=== PATIENT | male | born 1985 | race Caucasian/White ===

== ENCOUNTER 2022-08-09 10:53 | Emergency (ER) | payer MEDICARE, MEDICAID, SELFPAY ==
--- NOTE | ~2022-08-09 | CT_ITS ---
CT of the Abdomen and Pelvis: Indication: Abdominal pain Technique: 2.5 mm axial scans were obtained through the abdomen and pelvis following intravenous adm inistration of 100 cc of Omnipaque 350. Dose reduction technique was used on this scan by utilizing a utomated exposure control and iterative reconstruction technique. The dose-length product (DLP) was 1 86.74 mGy-cm. Findings: Scans through the lung bases are unremarkable. The liver, spleen, pancreas, gallbladder, adrenals and kidneys are within normal limits. No evidence of aortic aneurysm. No lymphadenopathy. No bowel obstruction or bowel wall thickening. Large amount of stool present at the rectum. There is prominent air distention of the transverse colon. Images through the pelvis were performed. Urinary bladder unremarkable. Prostate gland and seminal ve sicles are unremarkable. No ascites. There is scoliosis with extensive spinal fixation hardware prese nt. Impression: Large amount of stool at the rectum suggests fecal impaction. No other significant findings. Reviewed, dictated and finalized at [facility]. Impression: Large amount of stool at the rectum suggests fecal impaction. No other significant findings.
[2022-08-09 10:57] VITALS: BP 96/70; PULSE 72; RESP 16; TEMP 36.2; O2SAT 99
[2022-08-09 13:05] LABS: Basophils Absolute Auto 0.1 K/mm3 (0.0-0.1); Basophils Percent Auto 0.8 % (0.2-1.2); Eosinophils Absolute Auto 0.2 K/mm3 (0-0.3); Eosinophils Percent Auto 2.4 % (0-4.4); Hematocrit 43.8 % (42.0-52.0); Hemoglobin 14.3 g/dL (14.0-18.0); Immature Granulocyte Absolute 0.01 K/mm3 (0.00-0.031); Immature Granulocyte Percent A 0.1 % (0-0.5); Lymphocytes Absolute Auto 1.77 K/mm3 (0.9-3.2); Lymphocytes Percent Auto 23.4 % (18.3-44.2); Mean Corpuscular HGB Conc 32.6 g/dl (32-36); Mean Corpuscular Hemoglobin 30.6 pg (26-34); Mean Corpuscular Volume 93.6 fl (80-100); Mean Platelet Volume 10.3 fl (7.4-10.4); Monocytes Absolute Auto 0.9 K/mm3 (0.1-0.6); Monocytes Percent Auto 12.3 % (2.6-8.5); Neutrophils Absolute Auto 4.6 K/mm3 (1.3-6.7); Platelet Count Result 204 k/mm3 (150-375); Red Blood Count 4.68 M/mm3 (4.6-6.20); Red Cell Distribution Width 13.1 % (11.5-14.5); White Blood Count 7.6 K/mm3 (4.5-10.0)
[2022-08-09 13:23] LABS: Alanine Aminotransferase 134 U/L (6-50); Albumin Level 4.4 g/dL (3.5-5.1); Alkaline Phosphatase 142 U/L (38-126); Anion Gap 6 mmol/L (8-16); Aspartate Amino Transferase 109 U/L (17-59); Bilirubin,Total 0.6 mg/dL (0.2-1.3); Blood Urea Nitrogen 11 mg/dL (9-20); Calcium 8.8 mg/dL (8.4-10.2); Carbon Dioxide 31 mmol/L (22-30); Chloride 102 mmol/L (98-107); Estimated Glomerular Filt Rate > 60; Glucose 78 mg/dL (65-110); Potassium 4.4 mmol/L (3.4-5.0); Sodium 139 mmol/L (137-145)
[2022-08-09 14:32] VITALS: BP 88/61; PULSE 60; RESP 18; O2SAT 98
--- NOTE | 2022-08-09 14:51 | ED.GENADULT ---
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 Patient states that he had severe pain earlier prior to coming to the ER however by the time he came to the ER it subsided denies any nausea or vomiting. No history of fever or chills. Mom states that she called Dr. Juan have recommended to come to the ER to get a CT of the abdomen. She also states that his liver enzymes were elevated and is worried about liver failure Related Data Allergies Allergy/AdvReac Type Severity Reaction Status Date / Time No Known Allergies Allergy Verified 08/09/22 14:33 Review of Systems Review of Systems: ROS unobtainable: Yes unobtainable due to medical condition Exam Narrative: GENERAL: Well-appearing, thin and frail HEAD: Normocephalic, atraumatic. EYES: PERRLA and EOMI. NECK: Supple. CHEST: Clear to auscultation. No respiratory distress. HEART: Regular rate and rhythm. No murmur heard. Normal peripheral pulses. ABDOMEN: Soft, nontender, nondistended, normal active bowel sounds. EXTREMITIES: Normal range of motion. No edema. SKIN: Warm, dry, no rash. NEURO: No focal deficits. Alert PSYCH: Normal mood and affect. Course Course Emergency Course: Patient comfortably resting on the bed in no discomfort informed mother about his lab work, CT findings. Recommended to give MiraLAX to 3 times a day till he has a good bowel movement. Continue home medications for Vital Signs Vital signs: Vital Signs Temperature 36.2 C L 08/09/22 10:57 Pulse Rate 72 08/09/22 10:57 Respiratory Rate 16 08/09/22 10:57 Blood Pressure 96/70 L 08/09/22 10:57 Pulse Oximetry 99 08/09/22 10:57 Oxygen Delivery Room Air 08/09/22 10:57 Temperature 36.2 C L 08/09/22 10:57 Pulse Rate 60 08/09/22 14:32 Respiratory Rate 18 08/09/22 14:32 Blood Pressure 88/61 L 08/09/22 14:32 Pulse Oximetry 98 08/09/22 14:32 Oxygen Delivery Room Air 08/09/22 10:57 Medical Decision Making MDM Narrative Medical decision making narrative: With a history of Jeremy syndrome either bed or wheelchair bound having intermittent abdominal pain will obtain a CT of the abdomen and lab lab work. Differential Diagnosis Differential Diagnosis: Bowel obstruction, constipation Medical Records Medical records reviewed: Yes I reviewed the external patient's medical records. Vital Signs Vital Signs: Vital Signs Temperature 36.2 C L 08/09/22 10:57 Pulse Rate 72 08/09/22 10:57 Respiratory Rate 16 08/09/22 10:57 Blood Pressure 96/70 L 08/09/22 10:57 Pulse Oximetry 99 08/09/22 10:57 Oxygen Delivery Room Air 08/09/22 10:57 Temperature 36.2 C L 08/09/22 10:57 Pulse Rate 60 08/09/22 14:32 Respiratory Rate 18 08/09/22 14:32 Blood Pressure 88/61 L 08/09/22 14:32 Pulse Oximetry 98 08/09/22 14:32 Oxygen Delivery Room Air 08/09/22 10:57 Lab Data Lab results reviewed: Yes I reviewed the patient's lab results. 08/09/22 12:56 08/09/22 12:56 Labs: Lab Results 08/09/22 08/09/22 Range/Units 12:56 12:56 WBC 7.6 (4.5-10.0) K/mm3 RBC 4.68 (4.6-6.20) M/mm3 Hgb 14.3 (14.0-18.0) g/dL Hct 43.8 (42.0-52.0) % MCV 93.6 (80-100) fl MCH 30.6 (26-34) pg MCHC 32.6 (32-36) g/dl RDW 13.1 (11.5-14.5) % Plt Count 204 (150-375) k/mm3 MPV 10.3 (7.4-10.4) fl Immature Gran % (Auto) 0.1 (0-0.5) % Neut % (Auto) 61.0 (45.5-73.1) % Lymph % (Auto) 23.4 (18.3-44.2) % [place] % (Auto) 12.3 H (2.6-8.5) % Eos % (Auto) 2.4 (0-4.4) % Baso % (Auto) 0.8 (0.2-1.2) % Lymph # (Auto) 1.77 (0.9-3.2)
== END 2022-08-09 15:22 | disposition home or self-care (01) ==
PROVIDERS: Emergency Provider Family Medicine; PCP Internal Medicine
DX: R79.89 Other specified abnormal findings of blood chemistry (principal); K59.01 Slow transit constipation; Q93.59 Other deletions of part of a chromosome
CPT/HCPCS: 36415; 74177; 80053; 85025; 99284; Q9967